=== PATIENT | female | born 1990 | race Caucasian/White ===

== ENCOUNTER 2017-12-02 07:28 | Emergency (ER) | payer SELFPAY ==
[~2017-12-02] VITALS: Ht 162.6 cm; Wt 90.2 kg
[2017-12-02] MEDS ORDERED: SODIUM CHLORIDE 0.9% 1,000 ML IV ONE (09:08)
[2017-12-02] MEDS ORDERED: ONDANSETRON HCL 4MG/2ML VIAL IV STA (09:08)
[2017-12-02] MEDS ORDERED: MORPHINE SULFATE 4 MG/ML CPJ (NOT FOR IM USE) IV STA (09:08)
[2017-12-02 09:21] LABS: BASOPHILS % 0.5 % (0.0-2.0); EOSINOPHILS % 2.9 % (0.0-5.0); HEMATOCRIT. 36.8 % (36.0-48.0); HEMOGLOBIN. 12.6 g/dL (12.0-16.0); LYMPHOCYTES % 22.3 % (20.0-50.0); MEAN CORPUSCULAR HEMOGLOBIN 26.7 pg (28.0-32.0); MEAN CORPUSCULAR VOLUME 78.1 fL (81.0-99.0); MEAN PLATELET VOLUME 8.9 fl (7.4-10.4); MONOCYTES % 4.3 % (2.0-8.0); PLATELET 273 x1000/uL (130-400); RED BLOOD CELL COUNT 4.72 mill/uL (4.2-5.4); RED CELL DISTRIBUTION WIDTH 14.2 % (11.6-14.6)
[2017-12-02 09:23] LABS: CLARITY URINE CLEAR (CLEAR); COLOR URINE YELLOW (YELLOW); KETONES URINE NEGATIVE (NEGATIVE); LEUKOCYTE ESTERASE URINE NEGATIVE (NEGATIVE); NITRITE URINE NEGATIVE (NEGATIVE); OCCULT BLOOD URINE NEGATIVE (NEGATIVE); PH URINE 5.5 (4.5-8.0); PROTEIN URINE NEGATIVE (NEGATIVE)
[2017-12-02 09:24] LABS: CHLORIDE 104 mEq/L (98-107)
[2017-12-02 09:25] LABS: PROTHROMBIN TIME 9.9 sec (9.1-11.1)
[2017-12-02] MEDS ORDERED: MORPHINE SULFATE 4 MG/ML CPJ (NOT FOR IM USE) IV ONE (11:00)
[2017-12-02] MEDS ORDERED: IOHEXOL-300 100 ML BOTTLE ONE (11:49)
[2017-12-02] MEDS ORDERED: METOCLOPRAMIDE HCL 10MG/2ML VIAL IV ONE (12:45)
[2017-12-02 13:04] VITALS: BP 96/54
== END 2017-12-02 13:08 | disposition home or self-care (01) ==
LOC: ER 07:28
DX: R10.33 Periumbilical pain (principal); R11.0 Nausea; R00.1 Bradycardia, unspecified
CPT/HCPCS: 36415; 71045; 74177; 80053; 81003; 81025; 83690; 84484; 85025; 85610; 93005; 96374; 96375; 96376; 99285; J2270; J2405; J2765; J7030; Q9967; Z7610

== ENCOUNTER 2018-02-19 19:11 | Emergency (ER) | payer SELFPAY ==
[~2018-02-19] VITALS: Ht 157.5 cm; Wt 96.0 kg
[2018-02-19] MEDS ORDERED: HYDROCODONE/ACETAMINOPHEN 5/325MG TABLET PO ONE (20:15)
[2018-02-19] MEDS ORDERED: ONDANSETRON 4MG ODT PO ONE (20:15)
[2018-02-19 23:21] VITALS: BP 109/66
== END 2018-02-20 01:02 | disposition home or self-care (01) ==
LOC: ER 19:30
DX: M79.622 Pain in left upper arm (principal); R20.0 Anesthesia of skin; Z98.890 Other specified postprocedural states
CPT/HCPCS: 73060; 81025; 93971; 99284; Q0162

== ENCOUNTER 2018-04-02 19:49 | Emergency (ER) | payer SELFPAY ==
[~2018-04-02] VITALS: Ht 157.5 cm; Wt 92.4 kg
[2018-04-02 20:32] VITALS: BP 119/73
== END 2018-04-03 07:27 | disposition left against medical advice (07) ==
LOC: ER 04-03 07:12
DX: R05 Cough (principal); Z53.21 Procedure and treatment not carried out due to patient leaving prior to being seen by health care provider

== ENCOUNTER 2018-06-24 15:36 | Emergency (ER) | payer SELFPAY ==
[~2018-06-24] VITALS: Ht 157.5 cm; Wt 88.0 kg
[2018-06-24 22:53] LABS: CLARITY URINE CLEAR (CLEAR); COLOR URINE YELLOW (YELLOW); KETONES URINE NEGATIVE (NEGATIVE); LEUKOCYTE ESTERASE URINE 2+ (NEGATIVE); NITRITE URINE NEGATIVE (NEGATIVE); OCCULT BLOOD URINE NEGATIVE (NEGATIVE); PROTEIN URINE NEGATIVE (NEGATIVE); SPECIFIC GRAVITY URINE 1.017 (1.005-1.030); UROBILINOGEN URINE 0.2 E.U./dL (0.2-1.0)
[2018-06-24] MEDS ORDERED: KETOROLAC 60MG/2ML VIAL IM ONE (23:00)
[2018-06-24 23:38] VITALS: BP 112/65
== END 2018-06-24 23:39 | disposition home or self-care (01) ==
LOC: ER 15:36
DX: M54.5 Low back pain (principal); N39.0 Urinary tract infection, site not specified; J45.909 Unspecified asthma, uncomplicated; Z98.890 Other specified postprocedural states; Z85.41 Personal history of malignant neoplasm of cervix uteri
CPT/HCPCS: 81003; 81025; 96372; 99283; J1885

== ENCOUNTER 2018-06-30 09:46 | Emergency (ER) | payer MEDICAID ==
[~2018-06-30] VITALS: Ht 157.5 cm; Wt 89.0 kg
[2018-06-30 11:23] LABS: CHLORIDE 106 mEq/L (98-107)
[2018-06-30 11:29] LABS: BASOPHILS % 0.8 % (0.0-2.0); EOSINOPHILS % 4.3 % (0.0-5.0); HEMOGLOBIN. 12.6 g/dL (12.0-16.0); LYMPHOCYTES % 39.5 % (20.0-50.0); MEAN CORPUSCULAR HEMOGLOBIN 26.3 pg (28.0-32.0); MEAN CORPUSCULAR VOLUME 79.6 fL (81.0-99.0); MONOCYTES % 5.4 % (2.0-8.0); PLATELET 316 x1000/uL (130-400); RED BLOOD CELL COUNT 4.77 mill/uL (4.2-5.4); RED CELL DISTRIBUTION WIDTH 13.6 % (11.6-14.6)
[2018-06-30] MEDS ORDERED: SODIUM CHLORIDE 0.9% 1,000 ML IV ONE (11:30)
[2018-06-30] MEDS ORDERED: ONDANSETRON HCL 4MG/2ML INJ IV ONE (11:30)
[2018-06-30 11:42] LABS: B-HCG QUANTITATIVE < 1 mIU/mL (<3)
[2018-06-30 15:19] VITALS: BP 110/62
== END 2018-06-30 15:29 | disposition home or self-care (01) ==
LOC: ER 09:46
DX: N93.9 Abnormal uterine and vaginal bleeding, unspecified (principal); N87.9 Dysplasia of cervix uteri, unspecified; J45.909 Unspecified asthma, uncomplicated; Z98.890 Other specified postprocedural states
CPT/HCPCS: 36415; 76830; 76856; 80053; 84702; 85025; 86850; 86900; 86901; 96361; 96374; 99284; J2405; J7030

== ENCOUNTER 2023-08-31 19:55 | Emergency (ER) | payer MEDICAID ==
[~2023-08-31] VITALS: Ht 157.5 cm; Wt 93.0 kg
[2023-08-31 20:23] LABS: BASOPHILS % 0.3 % (0.0-2.0); DIFFERENTIAL COMMENT 0; HEMOGLOBIN. 11.7 g/dL (12.0-16.0); LYMPHOCYTES % 15.1 % (20.0-50.0); MEAN CORPUSCULAR HEMOGLOBIN 26.1 pg (28.0-32.0); MEAN CORPUSCULAR HGB CONC 33.5 g/dL (31.0-37.0); MEAN CORPUSCULAR VOLUME 77.8 fL (81.0-99.0); MEAN PLATELET VOLUME 7.9 fl (7.4-10.4); MONOCYTES % 4.4 % (2.0-8.0); NEUTROPHILS % 79.2 % (40.0-76.0); PLATELET 293 x1000/uL (130-400); RED CELL DISTRIBUTION WIDTH 14.6 % (11.6-14.6); WHITE BLOOD COUNT 7.3 x1000/uL (4.5-11.0)
[2023-08-31 20:40] LABS: CHLORIDE 104 mEq/L (98-107); POTASSIUM 3.9 mEq/L (3.5-5.1); SODIUM 137 mEq/L (136-145)
[2023-08-31 20:41] LABS: CARBON DIOXIDE 29 mEq/L (21-32)
[2023-08-31 20:46] LABS: CREATININE 0.6 mg/dL (0.6-1.0); GLUCOSE 98 mg/dL (70-105); UREA NITROGEN BLOOD 9 mg/dL (9-23)
[2023-08-31 21:01] VITALS: BP 118/78; PULSE 104; RESP 16; TEMP 98.2; O2SAT 99
[2023-08-31 22:37] LABS: CLARITY URINE CLEAR (CLEAR); COLOR URINE YELLOW (YELLOW); GLUCOSE URINE NEGATIVE (NEGATIVE); KETONES URINE TRACE (NEGATIVE); LEUKOCYTE ESTERASE URINE NEGATIVE (NEGATIVE); NITRITE URINE NEGATIVE (NEGATIVE); OCCULT BLOOD URINE NEGATIVE (NEGATIVE); PH URINE 5.5 (4.5-8.0); PROTEIN URINE NEGATIVE (NEGATIVE); SPECIFIC GRAVITY URINE 1.022 (1.005-1.030)
[2023-08-31 22:42] LABS: HCG SCREEN NEGATIVE
[2023-08-31 22:44] LABS: ALANINE AMINOTRANSFERASE 28 IU/L (10-49); ALBUMIN 4.8 g/dL (3.2-4.8); ASPARTATE AMINOTRANSFERASE 23 IU/L (<34); BILIRUBIN DIRECT 0.2 mg/dL (<=3.0); BILIRUBIN TOTAL 0.5 mg/dL (0.1-1.0); PROTEIN TOTAL 7.5 g/dL (6.0-8.3)
[2023-09-01] MEDS: ONDANSETRON 4MG ODT PO ONE
[2023-09-01] MEDS: SODIUM CHLORIDE 0.9% 1,000 ML IV ONE
[2023-09-01] MEDS: BISMUTH SUBSALICYLATE 262 MG/15 ML-120ML BOTTLE PO ONE (00:15)
[2023-09-01] MEDS: MAGNESIUM/ALUMINUM HYDROXIDE/SIMETHICONE 30ML UDC PO ONE (00:15)
[2023-09-01] MEDS: DICYCLOMINE HCL 10MG/ML 2ML VIAL IM ONE (00:15)
[2023-09-01] MEDS: IOHEXOL-300 100 ML BOTTLE ONE (03:19)
== END 2023-09-01 07:57 | disposition home or self-care (01) ==
LOC: ER 19:55
DX: R10.84 Generalized abdominal pain (principal); J45.909 Unspecified asthma, uncomplicated; Z98.890 Other specified postprocedural states
CPT/HCPCS: 99285; 80076; 80048; 81003; 81025; 84703; 83690; 85025; 36415; 74177; 96360; 96361; 96372; Q9967; Q0162; J0500; J7030